=== PATIENT | female | born 1970 | race African-American/Black ===

== ENCOUNTER → 2016-09-25 | Outpatient (CLI) | payer MEDICAID ==
[2016-09-25 11:45] LABS: ALANINE AMINOTRANSFERASE 36 U/L (9-52); ALBUMIN 3.5 g/dL (3.5-5.0); ALKALINE PHOSPHATASE 75 U/L (38-126); ANION GAP 12 (5-19); ASPARTATE AMINO TRANSFERASE 22 U/L (14-36); BILIRUBIN,TOTAL 0.6 mg/dL (0.2-1.3); BLOOD UREA NITROGEN 33 mg/dL (7-20); CALCIUM 9.2 mg/dL (8.4-10.2); CARBON DIOXIDE 24 mmol/L (22-30); CHLORIDE 109 mmol/L (98-107); CREATININE RESULT 2.72 mg/dL (0.52-1.25); GLUCOSE 96 mg/dL (75-110); POTASSIUM 3.7 mmol/L (3.6-5.0); SODIUM 144.9 mmol/L (137-145); TOTAL PROTEIN 6.1 g/dL (6.3-8.2)
== END ==
LOC: OD 10:04
PROVIDERS: ATTEND Internal Medicine Geriatric Medicine
DX: I10 Essential (primary) hypertension (principal)
CPT/HCPCS: 36415; 80053

== ENCOUNTER 2017-01-06 20:16 | Emergency (ER) | payer SELFPAY ==
[2017-01-06] MEDS ORDERED: FUROSEMIDE INJ/PF 100 MG/10 ML SDV IV ONE (21:36)
[2017-01-06] MEDS ORDERED: ISOSORBIDE DINITRATE 20 MG TABLET PO ONE (21:37)
[2017-01-06] MEDS ORDERED: HYDRALAZINE HCL 50 MG TABLET PO ONE (21:37)
[2017-01-06] MEDS ORDERED: CARVEDILOL 12.5 MG TABLET PO ONE (21:37)
[2017-01-06] MEDS ORDERED: AMLODIPINE BESYLATE 10 MG TABLET PO ONE (21:37)
--- NOTE | 2017-01-06 22:00 | ER Document Report ---
ED Blood Pressure Problem - General Chief Complaint: High Blood Pressure Stated Complaint: ARMS/LEGS SWELLING,DIFFICULTY BREATHING Notes: The patient is a 46-year-old female, past medical history hypertension, chronic peripheral edema, hyperlipidemia, Stage 4 CKD, presents with 4 months of intermittent ankle swelling. She has a dull frontal headache and takes Motrin which helps. In addition, she has been out of her blood pressure medications for the past 3 months because of loss of insurance. She has an appointment at the [facility] in 5 weeks. The patient is not taking her furosemide 20 mg, atorvastatin 20 mg, cetirizine 5 mg, isosorbide dinitrate 20 mg, hydralazine 100 mg, Terazosin 5 mg, coreg 25 mg, sertraline 100 mg, amlodipine 10 mg, Combivent. She denies chest pain, nausea, vomiting, calf pain, numbness, tingling, fevers, back pain, headache or abdominal pain. TRAVEL OUTSIDE OF THE [place] IN LAST 30 DAYS: No - Related Data Allergies/Adverse Reactions: No Known Allergies Allergy (Verified 09/29/15 08:27) Past Medical History - General Information source: Patient - Social History Smoking Status: Unknown if Ever Smoked Family History: CAD, DM, Hypertension Patient has suicidal ideation: No Patient has homicidal ideation: No - Past Medical History Cardiac Medical History: Reports: Hx Hypercholesterolemia, Hx Hypertension Pulmonary Medical History: Reports: Hx Tuberculosis Renal/ Medical History: Denies: Hx Peritoneal Dialysis Psychiatric Medical History: Reports: Hx Depression - Immunizations Immunizations up to date: Yes Hx Diphtheria, Pertussis, Tetanus Vaccination: Yes Hx Pneumococcal Vaccination: 11/26/13 Review of Systems - Review of Systems Notes: REVIEW OF SYSTEMS: CONSTITUTIONAL: -fevers, -chills EENT: -eye pain, -difficulty swallowing, -nasal congestion CARDIOVASCULAR:-chest pain, -syncope. RESPIRATORY: -cough, -SOB GASTROINTESTINAL: -abdominal pain, - nausea, -vomiting, -diarrhea GENITOURINARY: -dysuria, -hematuria MUSCULOSKELETAL: +ankle edema, -back pain, -neck pain SKIN: -rash or skin lesions. HEMATOLOGIC: -easy bruising or bleeding. LYMPHATIC: -swollen, enlarged glands. NEUROLOGICAL: -altered mental status or loss of consciousness, -headache, - neurologic symptoms PSYCHIATRIC: -anxiety, -depression. ALL OTHER SYSTEMS REVIEWED AND NEGATIVE. Physical Exam - Vital signs Vitals: Temp Pulse Resp BP Pulse Ox 98.3 F 103 H 22 H 300/160 H 94 01/06/17 20:52 01/06/17 20:52 01/06/17 20:52 01/06/17 20:52 01/06/17 20:52 - Notes Notes: PHYSICAL EXAMINATION: GENERAL: Well-appearing, well-nourished and in no acute distress. HEAD: Atraumatic, normocephalic. EYES: Pupils equal round and reactive to light, extraocular movements intact, sclera anicteric, conjunctiva are normal. ENT: nares patent, oropharynx clear without exudates. Moist mucous membranes. NECK: Normal range of motion, supple without lymphadenopathy LUNGS: Breath sounds clear to auscultation bilaterally and equal. No wheezes rales or rhonchi. HEART: Regular rate and rhythm without murmurs ABDOMEN: Soft, nontender, normoactive bowel sounds. No guarding, no rebound. No masses appreciated. EXTREMITIES: 2+ pitting edema to ankles, normal range of motion. No calf tenderness. No cyanosis. NEUROLOGICAL: Cranial nerves grossly intact. Normal speech, normal gait. Normal sensory, motor, and reflex exams. PSYCH: Normal mood, normal affect. SKIN: Warm, Dry, normal turgor, no rashes or lesions noted. Course - Re-evaluation Re-evalutation: Patient with asymptomatic hypertension due to medication noncompliance for the past 3 months. Her only complaint is a dull frontal headache and dependent edema to her ankles, which resolves when she elevates her legs. Based on ACEP guidelines, recommends restarting home blood pressure meds and following up with primary care physician without checking labs. After taking her home blood pressure medications, her blood pressure decreased to 181/92 and she is still asymptomatic. Provided patient with her home doses of her antihypertensive medications and will write for a prescription until she is able [facility]. - Vital Signs Vital signs: Temp Pulse Resp BP Pulse Ox 98.3 F 103 H 22 H 300/160 H 94 01/06/17 20:52 01/06/17 20:52 01/06/17 20:52 01/06/17 20:52 01/06/17 20:52 Discharge - Discharge Clinical Impression: Dependent edema Hypertension Qualifiers: Hypertension type: unspecified secondary hypertension Qualified Code(s): I15.9 - Secondary hypertension, unspecified; I15 - Secondary hypertension Condition: Stable Disposition: HOME, SELF-CARE Additional Instructions: HIGH BLOOD PRESSURE REQUIRING TREATMENT: Your blood pressure is high. This is called "hypertension." Your history and exam suggest that this is not a temporary problem. You need treatment of your blood pressure. If left untreated, high blood pressure greatly increases your risk of heart attack and stroke. Please don't ignore this problem. If you have blood pressure medicine but aren't using it regularly, start taking it again. Some simple things you can do to help are: Get some aerobic exercise for at least 20 minutes on a daily basis. (See your doctor before beginning any new exercise program.) Eat a low-fat diet. Lose excess weight. Avoid salty foods and avoid adding salt to any of the foods you eat. Avoid diet pills, decongestants, "energizing" herbs, and other medicines that elevate blood pressure. There are many different medicines that treat blood pressure. If your medication causes unpleasant side effects, call your doctor. There are others you can try. Treating hypertension is a life-long investment in your health. CALCIUM CHANNEL BLOCKERS: A medication of the calcium channel dawson type has been prescribed for you. Examples of this type of medicine are Calan, Isoptin, Procardia, and Cardizem. These medicines have a variety of uses, including prevention of angina attacks, treatment of blood pressure, regulation of certain heart rhythm problems, and prevention of migraine headaches. Calcium channel blockers work by interfering with the flow of calcium in cell membranes. This results in dilation of blood vessels, and slowing of electrical conduction in the heart. A slight dizziness (due to a fall in blood pressure) may occur with the first dose, and sometimes even with later doses. This may make you prone to dizziness if you stand up suddenly. Call the doctor if lightheadedness is severe, or if you develop palpitations, shortness of breath, or any other new or alarming symptoms. BETA BLOCKERS: You have been given a prescription for a beta-dawson medication. This class of drugs is used for many purposes, including angina, high blood pressure , heart rhythm disturbances, tremors, and migraines. The medication works by interfering with the effects of the sympathetic nervous system (the sympathetic system has adrenaline-like effects of constricting blood vessels, increasing heart rate, and increasing blood pressure). This medication is usually well-tolerated. However, some patients have side effects such as fatigue, depression, or dizziness. Persons with asthma may develop wheezing from this medicine. Contact your doctor if you are bothered by any side effects. Do not take any cold or allergy medication without first consulting your doctor. Do not stop the medicine without consulting your doctor, as a "rebound " worsening of your condition can result. FOLLOW-UP CARE: If you have been referred to a physician for follow-up care, call the physician s office for an appointment as you were instructed or within the next two days. If you experience worsening or a significant change in your symptoms, notify the physician immediately or return to the Emergency Department at any time for re-evaluation. Prescriptions: Amlodipine Besylate 10 mg PO DAILY #40 tab Atorvastatin Calcium 20 mg PO DAILY #40 tablet Carvedilol [Coreg 25 mg Tablet] 1 tab PO Q12 #80 tab Furosemide [Lasix] 20 mg PO QAM #40 tablet Hydralazine HCl 100 mg PO DAILY 40 Days Isosorbide Dinitrate [Isordil Titradose 20 mg Tablet] 20 mg PO DAILY #40 tablet Sertraline HCl 100 mg PO DAILY 40 Days Terazosin HCl 5 mg PO DAILY 40 Days Forms: Elevated Blood Pressure Referrals: JONATAN GAGE DO [NO LOCAL MD] - Follow up as needed
[2017-01-06] MEDS ORDERED: ISOSORBIDE DINITRATE 20 MG TABLET ONE (22:11)
[2017-01-06 23:03] VITALS: BP 184/94
== END 2017-01-06 23:03 | disposition home or self-care (01) ==
LOC: ER 20:16
DX: R60.9 Edema, unspecified (principal); R51 Headache; E78.00 Pure hypercholesterolemia, unspecified; I12.9 Hypertensive chronic kidney disease with stage 1 through stage 4 chronic kidney disease, or unspecified chronic kidney disease; Z91.14 Patient's other noncompliance with medication regimen; N18.4 Chronic kidney disease, stage 4 (severe); E78.5 Hyperlipidemia, unspecified; Z86.11 Personal history of tuberculosis; Z59.8 Other problems related to housing and economic circumstances
CPT/HCPCS: 99284; 96374; J1940

== ENCOUNTER 2017-02-13 15:14 | Emergency (ER) | payer SELFPAY ==
--- NOTE | 2017-02-13 16:19 | ER Document Report ---
HPI - HPI Patient complains to provider of: Elevated blood pressure Onset: Just prior to arrival Onset/Duration: Gradual Quality of pain: No pain Pain Level: Denies Context: Patient states she was going to her doctor's office for recheck and was told that her blood pressure was elevated. Patient did not see the provider as there was no provider in the office today. Nursing staff told patient that she should come to the emergency department for evaluation. Patient denies any problems or complaints. Patient denies any chest pain, headache, abdominal pain , back pain, or shortness of breath. Patient denies any urinary symptoms or visual changes. Does state that she takes atenolol and is supposed to take lisinopril/HCTZ, but states she saw that -Americans can have swelling with taking lisinopril so she has not been taking this medication. Associated Symptoms: None. denies: Chest pain, Nonproductive cough, Productive cough, Headache, Shortness of breath Exacerbated by: Denies Relieved by: Denies Similar symptoms previously: Yes Recently seen / treated by doctor: No - ROS ROS below otherwise negative: Yes Systems Reviewed and Negative: Yes All other systems reviewed and negative - CONSTITUTIONAL Constitutional: DENIES: Fever - NEURO Neurology: DENIES: Headache, Weakness - CARDIOVASCULAR Cardiovascular: DENIES: Chest pain - RESPIRATORY Respiratory: DENIES: Trouble Breathing, Coughing - GASTROINTESTINAL Gastrointestinal: DENIES: Abdominal Pain, Diarrhea - REPRODUCTIVE Reproductive: DENIES: : - MUSCULOSKELETAL Musculoskeletal: DENIES: Extremity pain, Back Pain, Neck Pain - DERM Skin Color: Normal Skin Problems: None Past Medical History - General Information source: Patient - Social History Smoking Status: Never Smoker Chew tobacco use (# tins/day): No Frequency of alcohol use: None Drug Abuse: None Family History: CAD, DM, Hypertension Patient has suicidal ideation: No Patient has homicidal ideation: No - Past Medical History Cardiac Medical History: Reports: Hx Hypercholesterolemia, Hx Hypertension Pulmonary Medical History: Reports: Hx Tuberculosis Renal/ Medical History: Reports: Hx Renal Insufficiency. Denies: Hx Peritoneal Dialysis Psychiatric Medical History: Reports: Hx Depression Surgical Hx: Negative - Immunizations Immunizations up to date: Yes Hx Diphtheria, Pertussis, Tetanus Vaccination: Yes Hx Pneumococcal Vaccination: 11/26/13 Vertical Provider Document - CONSTITUTIONAL Agree With Documented VS: Yes Exam Limitations: No Limitations General Appearance: WD/WN, No Apparent Distress - INFECTION CONTROL TRAVEL OUTSIDE OF THE [place] IN LAST 30 DAYS: No - HEENT HEENT: Atraumatic, Normal ENT Exam, Normocephalic - NECK Neck: Normal Inspection, Supple - RESPIRATORY Respiratory: Breath Sounds Normal, No Respiratory Distress O2 Sat by Pulse Oximetry: 91 - CARDIOVASCULAR Cardiovascular: Regular Rate, Regular Rhythm, No Murmur - GI/ABDOMEN Gastrointestinal: Abdomen Soft, Abdomen Non-Tender - BACK Back: Normal Inspection. negative: CVA Tenderness-Right, CVA Tenderness-Left - MUSCULOSKELETAL/EXTREMETIES Musculoskeletal/Extremeties: HAM SALAS - NEURO Level of Consciousness: Awake, Alert, Appropriate Motor/Sensory: No Motor Deficit, No Sensory Deficit - DERM Integumentary: Warm, Dry, No Rash Course - Re-evaluation Re-evalutation: 02/13/17 16:[address] Guerra regarding patient presentation. Agrees with discharge plan of care. Patient presents with asymptomatic hypertension and acknowledges that she has not been taking her blood pressure medications as prescribed she was concerned about possible side effects. Patient educated at length regarding medications. Verbalized understanding and agrees with plan of care 02/13/17 16:18 The patient has been informed that they may have pre-hypertension or hypertension based on a blood pressure reading in the emergency department. I recommend that patient call the primary care provider listed on their discharge instructions or a physician of their choice by this week to arrange follow-up for further evaluation of possible pre-hypertension her hypertension. - Vital Signs Vital signs: Temp Pulse Resp BP Pulse Ox 97.8 F 62 18 187/107 H 91 L 02/13/17 15:25 02/13/17 15:25 02/13/17 15:25 02/13/17 15:25 02/13/17 15:25 Discharge - Discharge Clinical Impression: Hypertension Qualifiers: Hypertension type: essential hypertension Qualified Code(s): I10 - Essential ( primary) hypertension Condition: Stable Disposition: HOME, SELF-CARE Instructions: High Blood Pressure ([facility]), Angiotensin Converting Enzyme Inhibitor Medication ([facility]), Hydrochlorothiazide ([facility]) Additional Instructions: Return immediately for any new or worsening symptoms Followup with your primary care provider, call tomorrow to make a followup appointment Follow-up with your primary doctor for recheck Take your prescribed blood pressure medication as directed. Forms: Elevated Blood Pressure Referrals: [facility] [Provider Group] - Follow up tomorrow
[2017-02-13 16:51] VITALS: BP 223/128
== END 2017-02-13 16:53 | disposition home or self-care (01) ==
LOC: ER 15:14
DX: I10 Essential (primary) hypertension (principal); T46.4X6A Underdosing of angiotensin-converting-enzyme inhibitors, initial encounter; Z91.128 Patient's intentional underdosing of medication regimen for other reason; Z91.14 Patient's other noncompliance with medication regimen; Z79.899 Other long term (current) drug therapy
CPT/HCPCS: 99283

== ENCOUNTER → 2017-02-15 | Outpatient (CLI) | payer OTHER ==
[2017-02-15 11:26] LABS: ABSOLUTE BASOPHILS # (AUTO) 0.1 10^3/uL (0.0-0.2); ABSOLUTE EOSINOPHILS # (AUTO) 0.3 10^3/uL (0.0-0.6); ABSOLUTE LYMPHOCYTES (AUTO) 1.4 10^3/uL (0.5-4.7); ABSOLUTE MONOCYTES (AUTO) 0.4 10^3/uL (0.1-1.4); ABSOLUTE NEUT (AUTO) 3.3 10^3/uL (1.7-8.2); EOSINOPHILS % (AUTO) 5.5 % (0-6); HEMATOCRIT 37.1 % (36.0-47.0); HEMOGLOBIN 11.9 g/dL (12.0-15.5); HGB HCT DIFFERENCE -1.4; LYMPHOCYTES % (AUTO) 25.1 % (13-45); MEAN CORPUSCULAR HEMOGLOBIN 28.8 pg (27.0-33.4); MEAN CORPUSCULAR HGB CONC 32.1 g/dL (32.0-36.0); MEAN CORPUSCULAR VOLUME 90 fl (80-97); RED BLOOD COUNT 4.13 10^6/uL (3.72-5.28); RED CELL DISTRIBUTION WIDTH 15.8 % (11.5-14.0); SEGMENTED NEUTROPHILS % (AUTO) 60.4 % (42-78); WHITE BLOOD COUNT 5.4 10^3/uL (4.0-10.5)
[2017-02-15 11:50] LABS: CHOLESTEROL 170.01 mg/dL (0-200); Direct HDL 47 mg/dL (>40); TRIGLYCERIDES 124 mg/dL (<150)
[2017-02-15 12:01] LABS: DIRECT LDL 72 mg/dL (<100)
== END ==
LOC: CCC 10:18
DX: I10 Essential (primary) hypertension (principal)
CPT/HCPCS: 36415; 80061; 82043; 83036; 84443; 85025

== ENCOUNTER 2017-02-23 21:00 | Emergency (ER) | payer SELFPAY ==
[2017-02-23] MEDS ORDERED: HYDRALAZINE HCL INJ/PF 20 MG/1 ML SDV IV ONE ×2 (22:42→23:22)
--- NOTE | 2017-02-23 22:49 | ER Document Report ---
ED General - General Chief Complaint: Headache Stated Complaint: BLOOD PRESSURE ISSUES Time Seen by Provider: 02/23/17 22:20 Mode of Arrival: Ambulatory Information source: Patient Notes: This is a 47-year-old female with a history of poorly controlled hypertension, chronic kidney disease stage IV and prior CVA who presents with severe headache and elevated blood pressure. She states that she has had a mild cough for most the day and that from coughing she has developed a gradual but worsening headache all day. Finally tonight her headache became so severe that she asked her family to bring her to the ER. She does report compliance with her antihypertensive medications. She denies any fevers or chills. She denies any vision changes or numbness or tingling. She has had some nausea and vomiting today. Of note she has a history of hypertensive urgency and has required prior prior ICU admissions for the same. Last ICU admission she did respond to a Cardene drip. TRAVEL OUTSIDE OF THE [place] IN LAST 30 DAYS: No - Related Data Allergies/Adverse Reactions: No Known Allergies Allergy (Verified 02/23/17 21:46) Past Medical History - General Information source: Patient, [facility] Records - Social History Smoking Status: Former Smoker Frequency of alcohol use: None Drug Abuse: None Family History: CAD, DM, Hypertension - Past Medical History Cardiac Medical History: Reports: Hx Hypercholesterolemia, Hx Hypertension Pulmonary Medical History: Reports: Hx Tuberculosis Neurological Medical History: Reports: Hx Cerebrovascular Accident Renal/ Medical History: Reports: Hx End Stage Renal Disease, Hx Renal Insufficiency. Denies: Hx Peritoneal Dialysis Psychiatric Medical History: Reports: Hx Depression - Immunizations Immunizations up to date: Yes Hx Diphtheria, Pertussis, Tetanus Vaccination: Yes Hx Pneumococcal Vaccination: 11/26/13 Review of Systems - Review of Systems Constitutional: No symptoms reported. denies: Chills, Fever, Recent illness EENT: No symptoms reported Cardiovascular: No symptoms reported. denies: Chest pain, Palpitations Respiratory: Cough, Short of breath Gastrointestinal: No symptoms reported Genitourinary: No symptoms reported Musculoskeletal: No symptoms reported Skin: No symptoms reported Hematologic/Lymphatic: No symptoms reported Neurological/Psychological: See HPI, Headaches. denies: Seizure, Lost consciousness Physical Exam - Vital signs Vitals: Temp Pulse Resp BP Pulse Ox 98.5 F 93 30 H 260/174 H 86 L 02/23/17 21:53 02/23/17 21:53 02/23/17 21:53 02/23/17 21:53 02/23/17 21:53 - Notes Notes: PHYSICAL EXAMINATION: GENERAL: Well-appearing, well-nourished and in no acute distress. Pleasant, conversant, smiling HEAD: Atraumatic, normocephalic. EYES: Pupils equal round and reactive to light, extraocular movements intact, sclera anicteric, conjunctiva are normal. ENT: nares patent, oropharynx clear without exudates. Moist mucous membranes. NECK: Normal range of motion, supple without lymphadenopathy LUNGS: Breath sounds clear to auscultation bilaterally and equal. No wheezes rales or rhonchi. HEART: Regular rate and rhythm without murmurs ABDOMEN: Soft, nontender, normoactive bowel sounds. No guarding, no rebound. No masses appreciated. EXTREMITIES: Normal range of motion NEUROLOGICAL: Cranial nerves grossly intact. Normal speech. Motor strength +5/ 5 bilateral upper and lower extremities, sensation grossly intact throughout PSYCH: Normal mood, normal affect. SKIN: Warm, Dry, normal turgor, no rashes or lesions noted. Course - Re-evaluation Re-evalutation: 02/24/17 01:[address] is negative for acute process. She has remained neurologically intact. Her blood pressure is responding to hydralazine and she is now on a Cardene drip at 7.5. Most recent blood pressure 178/106. Will discuss with hospitalist for admission. 02/24/17 04:45 There are no ICU beds available at [facility], and hospitalist recommends transfer as patient requires a nicardipine drip at this time. I discussed the case with Dr. Lozano at [facility] who accepts the patient in transfer. Patient and family comfortable with this plan and questions were answered. 02/24/17 04:48 - Vital Signs Vital signs: Temp Pulse Resp BP Pulse Ox 98.2 F 93 22 H 190/102 H 95 02/24/17 03:19 02/23/17 21:53 02/24/17 02:30 02/24/17 02:30 02/24/17 02:30 - Laboratory Result Diagrams: 02/23/17 23:52 02/23/17 23:52 Laboratory results interpreted by me: 02/23/17 02/23/1717 22:40 23:49 23:52 Hgb 11.6 L Hct 35.8 L RDW 15.3 H APTT 22.4 L Potassium BUN Creatinine Est GFR ( Amer) Est GFR (Non-Af Amer) Glucose Total Bilirubin Urine Protein >=500 H 02/23/17 23:52 Hgb Hct RDW APTT Potassium 3.0 L* BUN 34 H Creatinine 4.52 H Est GFR ( Amer) 13 L Est GFR (Non-Af Amer) 10 L Glucose 133 H Total Bilirubin 1.4 H Urine Protein - EKG Interpretation by Me Additional EKG results interpreted by me: 02/23/17 22:49 EKG at 2243 demonstrates normal sinus rhythm with a rate of 81. There is an incomplete right bundle branch block and LVH. There is no significant change from prior EKG. Critical Care Note - Critical Care Note Total time excluding time spent on procedures (mins): 60 - minutes of critical care time spent in direct contact evaluating and reevaluating the patient, treating symptoms, reviewing labs and studies and speaking with family and consultants excluding any procedures Discharge - Discharge Clinical Impression: Hypertensive urgency, malignant, Hypokalemia Acute on chronic renal failure Qualifiers: Acute renal failure type: unspecified Chronic kidney disease stage: stage 4 ( severe) Qualified Code(s): N17.9 - Acute kidney failure, unspecified Condition: Serious Disposition: [facility]
[2017-02-23 23:12] LABS: PROTHROMBIN TIME 13.8 SEC (11.4-15.4)
[2017-02-23 23:13] LABS: PARTIAL THROMBOPLASTIN TIME 22.4 SEC (23.5-35.8)
[2017-02-23] MEDS: NICARDIPINE HCL RTU, ISO-OS 200 ML IV PRN ×2 (23:16→23:45)
--- NOTE | 2017-02-23 23:35 | RADIOLOGY REPORT (SQ) ---
EXAM DESCRIPTION: CHEST SINGLE VIEW COMPLETED DATE/TIME: 02/23/2017 11:07 pm REASON FOR STUDY: hypertensive urgency, BARAJAS COMPARISON: 04/20/2016 NUMBER OF VIEWS: One view. TECHNIQUE: Single frontal radiographic view of the chest acquired. LIMITATIONS: None. FINDINGS: LUNGS AND PLEURA: No pneumothorax. No consolidation or pleural effusion. MEDIASTINUM AND HILAR STRUCTURES: Stable. HEART AND VASCULATURE: Cardiac enlargement. Vascular congestion. BONES: No acute findings. HARDWARE: None in the chest. OTHER: No other significant finding. IMPRESSION: CARDIAC ENLARGEMENT. VASCULAR CONGESTION. TECHNICAL DOCUMENTATION: JOB ID: [id number] [employer]- All Rights Reserved
--- NOTE | 2017-02-23 23:38 | RADIOLOGY REPORT (SQ) ---
EXAM DESCRIPTION: CT HEAD WITHOUT COMPLETED DATE/TIME: 02/23/2017 11:12 pm REASON FOR STUDY: hypertensive urgency, BARAJAS COMPARISON: 08/17/2015 TECHNIQUE: Axial images acquired through the brain without intravenous contrast. Images reviewed wi th bone, brain and subdural windows. Images stored on PACS. All CT scanners at this facility use dose modulation, iterative reconstruction, and/or weight based d osing when appropriate to reduce radiation dose to as low as reasonably achievable (ALARA). [facility]: Dose Right [facility]: CareDose [facility]: Dose Right [facility]: Teradose 4D [facility]: Quibly RADIATION DOSE: 64.61 mGy. LIMITATIONS: None. FINDINGS: VENTRICLES: Age-appropriate. CEREBRUM: No masses. No hemorrhage. No midline shift. Areas of low density in the white matter mos t likely due to chronic micro-vascular ischemic change. No evidence for acute infarction. CEREBELLUM: No masses. No hemorrhage. No alteration of density. No evidence for acute infarction. EXTRAAXIAL SPACES: Mild age-related involutional change. No fluid collections. No masses. ORBITS AND GLOBE: No intra- or extraconal masses. Normal contour of globe without masses. CALVARIUM: No fracture. PARANASAL SINUSES: Left maxillary mucosal thickening. SOFT TISSUES: No mass or hematoma. OTHER: No other significant finding. IMPRESSION: No acute intracranial findings. Stable Areas of low density in the white matter most li galo due to chronic micro-vascular ischemic change. TECHNICAL DOCUMENTATION: JOB ID: [id number] Quality ID # [id number]: Final reports with documentation of one or more dose reduction techniques (e.g., Au tomated exposure control, adjustment of the mA and/or kV according to patient size, use of iterative reconstruction technique) 2010 [employer]- All Rights Reserved
--- NOTE | 2017-02-23 23:42 | EKG REPORT ---
SEVERITY:- ABNORMAL ECG - SINUS RHYTHM PROBABLE LEFT ATRIAL ABNORMALITY LVH WITH IVCD, LAD AND SECONDARY REPOL ABNRM : Confirmed by: Eli Abdi 23-Feb-2017 23:41:06
[2017-02-24 00:02] LABS: APPEARANCE,URINE CLEAR; BILIRUBIN,URINE NEGATIVE (NEGATIVE); GLUCOSE, URINE NEGATIVE (NEGATIVE); KETONES,URINE NEGATIVE (NEGATIVE); LEUKOCYTE ESTERASE,URINE NEGATIVE (NEGATIVE); NITRITE,URINE NEGATIVE (NEGATIVE); PROTEIN,URINE >=500 mg/dL (NEGATIVE); URINE SPECIFIC GRAVITY 1.007; UROBILINOGEN,URINE NEGATIVE mg/dL (<2.0)
[2017-02-24 00:03] LABS: ABSOLUTE BASOPHILS # (AUTO) 0.1 10^3/uL (0.0-0.2); ABSOLUTE EOSINOPHILS # (AUTO) 0.2 10^3/uL (0.0-0.6); ABSOLUTE LYMPHOCYTES (AUTO) 1.9 10^3/uL (0.5-4.7); ABSOLUTE MONOCYTES (AUTO) 0.7 10^3/uL (0.1-1.4); ABSOLUTE NEUT (AUTO) 6.1 10^3/uL (1.7-8.2); BASOPHILS % (AUTO) 0.9 % (0-2); HEMATOCRIT 35.8 % (36.0-47.0); HEMOGLOBIN 11.6 g/dL (12.0-15.5); MEAN CORPUSCULAR HEMOGLOBIN 29.3 pg (27.0-33.4); MEAN CORPUSCULAR HGB CONC 32.4 g/dL (32.0-36.0); MEAN CORPUSCULAR VOLUME 91 fl (80-97); MONOCYTES % (AUTO) 7.8 % (3-13); RED BLOOD COUNT 3.96 10^6/uL (3.72-5.28); RED CELL DISTRIBUTION WIDTH 15.3 % (11.5-14.0); SEGMENTED NEUTROPHILS % (AUTO) 68.3 % (42-78); WHITE BLOOD COUNT 8.9 10^3/uL (4.0-10.5)
[2017-02-24] MEDS ORDERED: HYDROMORPHONE HCL INJ/PF 2 MG/ML AMPULE IV ONE (00:03)
[2017-02-24] MEDS ORDERED: ONDANSETRON HCL INJ/PF 4 MG/2 ML SDV IV ONE (00:03)
[2017-02-24 00:16] LABS: URINE BARBITURATES SCREEN NEGATIVE; URINE METHADONE SCREEN NEGATIVE; URINE OPIATES LOW NEGATIVE; URINE PHENCYCLIDINE SCREEN NEGATIVE
[2017-02-24 00:16] LABS: ALANINE AMINOTRANSFERASE 33 U/L (9-52); ALBUMIN 3.8 g/dL (3.5-5.0); ALKALINE PHOSPHATASE 71 U/L (38-126); ANION GAP 16 (5-19); ASPARTATE AMINO TRANSFERASE 23 U/L (14-36); BILIRUBIN,DIRECT 0.4 mg/dL (0.0-0.4); BILIRUBIN,TOTAL 1.4 mg/dL (0.2-1.3); BLOOD UREA NITROGEN 34 mg/dL (7-20); CALCIUM 9.6 mg/dL (8.4-10.2); CARBON DIOXIDE 29 mmol/L (22-30); CHLORIDE 100 mmol/L (98-107); CREATINE KINASE 94 U/L (30-135); CREATININE RESULT 4.52 mg/dL (0.52-1.25); GLUCOSE 133 mg/dL (75-110); SODIUM 144.5 mmol/L (137-145); TOTAL PROTEIN 6.9 g/dL (6.3-8.2)
[2017-02-24 00:30] LABS: CREATINE KINASE MB 0.5 ng/mL (<4.55)
[2017-02-24 00:32] LABS: TROPONIN I 0.106 ng/mL
[2017-02-24] MEDS ORDERED: POTASSIUM CHLORIDE 20 MEQ/15 ML UDCUP PO ONE (01:46)
[2017-02-24 08:01] VITALS: BP 163/85
== END 2017-02-24 08:10 | disposition short-term general hospital (02) ==
LOC: ER 21:00
DX: I16.0 Hypertensive urgency (principal); I12.9 Hypertensive chronic kidney disease with stage 1 through stage 4 chronic kidney disease, or unspecified chronic kidney disease; N18.4 Chronic kidney disease, stage 4 (severe); N17.9 Acute kidney failure, unspecified; E87.6 Hypokalemia; R51 Headache; I45.10 Unspecified right bundle-branch block; Z87.891 Personal history of nicotine dependence; E78.00 Pure hypercholesterolemia, unspecified; Z86.73 Personal history of transient ischemic attack (TIA), and cerebral infarction without residual deficits
CPT/HCPCS: 93005; 99291; 96375; 96365; 36415; 82553; 82550; 85025; 85610; 85730; 80053; 81001; 84484; 80307; 71010; 70450; 93010; J0360; J1170; J2405; J3490

== ENCOUNTER → 2017-03-28 | Outpatient (CLI) | payer OTHER ==
[2017-03-28 12:32] LABS: ABSOLUTE BASOPHILS # (AUTO) 0.1 10^3/uL (0.0-0.2); ABSOLUTE EOSINOPHILS # (AUTO) 0.2 10^3/uL (0.0-0.6); ABSOLUTE LYMPHOCYTES (AUTO) 1.4 10^3/uL (0.5-4.7); ABSOLUTE MONOCYTES (AUTO) 0.7 10^3/uL (0.1-1.4); BASOPHILS % (AUTO) 1.4 % (0-2); EOSINOPHILS % (AUTO) 3.1 % (0-6); HEMATOCRIT 36.2 % (36.0-47.0); HEMOGLOBIN 11.8 g/dL (12.0-15.5); HGB HCT DIFFERENCE -0.8; LYMPHOCYTES % (AUTO) 21.4 % (13-45); MEAN CORPUSCULAR HEMOGLOBIN 29.5 pg (27.0-33.4); MEAN CORPUSCULAR HGB CONC 32.6 g/dL (32.0-36.0); MEAN CORPUSCULAR VOLUME 91 fl (80-97); MONOCYTES % (AUTO) 10.9 % (3-13); RED CELL DISTRIBUTION WIDTH 15.2 % (11.5-14.0); SEGMENTED NEUTROPHILS % (AUTO) 63.2 % (42-78); WHITE BLOOD COUNT 6.4 10^3/uL (4.0-10.5)
[2017-03-28 13:02] LABS: ANION GAP 15 (5-19); BLOOD UREA NITROGEN 58 mg/dL (7-20); CALCIUM 9.9 mg/dL (8.4-10.2); CARBON DIOXIDE 24 mmol/L (22-30); CHLORIDE 108 mmol/L (98-107); CREATININE RESULT 4.83 mg/dL (0.52-1.25); GLUCOSE 95 mg/dL (75-110); POTASSIUM 5.1 mmol/L (3.6-5.0); SODIUM 146.7 mmol/L (137-145)
[2017-03-29 08:39] LABS: HEPATITIS C VIRUS AB <0.1 s/co ratio (0.0-0.9)
== END ==
LOC: CCC 11:02
DX: N18.4 Chronic kidney disease, stage 4 (severe) (principal)
CPT/HCPCS: 36415; 80048; 85025; 86317; 86704; 86803; 86804; 87340

== ENCOUNTER 2017-04-08 05:53 | Day surgery (SDC) | payer OTHER ==
--- NOTE | 2017-04-04 10:17 | RADIOLOGY REPORT (SQ) ---
EXAM DESCRIPTION: CHEST PA/LATERAL COMPLETED DATE/TIME: 04/04/2017 9:57 am REASON FOR STUDY: PRE OP COMPARISON: 02/23/2017 EXAM PARAMETERS: NUMBER OF VIEWS: two views TECHNIQUE: Digital Frontal and Lateral radiographic views of the chest acquired. RADIATION DOSE: NA LIMITATIONS: none FINDINGS: LUNGS AND PLEURA: No opacities, masses or pneumothorax. No pleural effusion. MEDIASTINUM AND HILAR STRUCTURES: No masses or contour abnormalities. HEART AND VASCULAR STRUCTURES: Heart is enlarged. No failure. No effusions. BONES: No acute findings. HARDWARE: None in the chest. OTHER: No other significant finding. IMPRESSION: Cardiomegaly. No acute findings. TECHNICAL DOCUMENTATION: JOB ID: [id number] [employer]- All Rights Reserved
[~2017-04-08 05:53] MED LIST: CEFAZOLIN 1 GM/D5W RTU 1 GM/50 ML RTUPB IV PRN; LACTATED RINGERS 1000 ML IV PRN; LIDOCAINE 0.5% INJ-PF (5 MG/ML) 50 ML SDV SUBCUT PRN
[2017-04-08] MEDS ORDERED: LIDOCAINE 0.5% INJ-PF (5 MG/ML) 50 ML SDV ONE (06:49)
[2017-04-08] MEDS ORDERED: BUPIVACAINE HCL 0.25 % INJ/PF (2.5 MG/1 ML) 30 ML VIAL ONE (06:49)
[2017-04-08] MEDS ORDERED: BACITRACIN INJ 50,000 UNIT VIAL ONE (06:50)
[2017-04-08] MEDS ORDERED: FENTANYL CITRATE INJ/PF 100 MCG/2 ML AMPUL ONE (07:17)
[2017-04-08] MEDS ORDERED: MIDAZOLAM 2 MG/2 ML INJ ONE (07:17)
[2017-04-08] MEDS ORDERED: PROPOFOL INJ 200 MG/20 ML VIAL IV ONE (07:18)
[2017-04-08] MEDS ORDERED: MEPERIDINE HCL/PF INJ 25 MG/1 ML DISP.SYRIN IV PRN (08:44)
[2017-04-08] MEDS ORDERED: DIPHENHYDRAMINE HCL 50 MG/ML VIAL IV PRN (08:44)
[2017-04-08] MEDS ORDERED: PROMETHAZINE HCL INJ 25 MG/1 ML VIAL IV PRN ×2 (08:44)
[2017-04-08] MEDS ORDERED: FENTANYL CITRATE INJ/PF 100 MCG/2 ML AMPUL IV PRN ×3 (08:44)
[2017-04-08] MEDS ORDERED: MORPHINE SULFATE 10 MG/ML INJ IV PRN (08:44)
--- NOTE | 2017-04-08 09:32 | PDOC DISCHARGE SUMMARY ---
Discharge Summary (SDC) - Discharge Final Diagnosis: #1 end-stage renal disease. 2. History of stroke. 3. Hypertension. Date of Surgery: 04/08/17 Discharge Date: 04/08/17 Condition: Fair Treatment or Instructions: Discharge home [after recovery per ASU criteria]. Diet , [renal],as tolerated, when fully awake advance as tolerated. Activities within moderation encouraged. Follow up in my office by appointment in about [1 week]. Call for appointment. Leave wounds [covered], [keep clean and dry, until office visit in 1 week]. Medications per medication reconciliation sheet. P.o. Percocet as needed. Hold of on school/work [until evaluation in office]. May shower [in 48 hrs], [try to keep operated area as dry as possible]. Prescriptions: Oxycodone HCl/Acetaminophen [Percocet 5-325 mg Tablet] 1 tab PO ASDIR PRN #10 tab PRN Reason: Discharge Diet: Other (Comments) - Renal Respiratory Treatments at Home: Deep Breathing/Coughing Discharge Activity: Activity As Tolerated Report the Following to Your Physician Immediately: Shortness of Breath, Unusual Bleeding
[2017-04-08] MEDS ORDERED: OXYCODONE-ACETAMINOPHEN 5-325 MG TABLET PO PRN (09:49)
[2017-04-08] MEDS ORDERED: RINGERS SOLUTION,LACTATED 1,000 ML IV PRN (09:49)
--- NOTE | 2017-04-08 09:49 | Operative Report ---
Operative Report DATE OF SURGERY: 04/08/17 PREOPERATIVE DIAGNOSIS: #1 end-stage renal disease. 2. History of stroke. 3. Hypertension. POSTOPERATIVE DIAGNOSIS: #1 end-stage renal disease. Post PermCath insertion. 2. History of stroke. 3. Hypertension. OPERATION: 1. Ultrasound evaluation of the right internal jugular vein. 2. PermCath insertion via real-time access in the right internal jugular vein. 3. interpretation. SURGEON: RAMILA SMALL SUPERVISOR GRINDING: None ANESTHESIA: LMAC TISSUE REMOVED OR ALTERED: Not applicable. COMPLICATIONS: None ESTIMATED BLOOD LOSS: 5 mL. INTRAOPERATIVE FINDINGS: Of a satisfactory right internal jugular vein to support permacatheter. About 1.2 cm in diameter. The carotid artery immediately beneath it was avoided with the help of ultrasound. Good position and function of the catheter was easy egress of blood and ingress of heparinized solution. No contrast study was done in this case, in deference to the patient's positive beta hCG. PROCEDURE: After obtaining informed consent, the patient was taken to the operating room and positioned supine. The right neck and chest were prepared with chlorhexidine and draped out with sterile linen. After the " universal timeout ", in which it was verified that the patient continued to receive antibiotic, the procedure commenced. A steriley sheathed ultrasound probe was used to evaluate the right internal jugular vein. Local anesthesia was infiltrated adjacent to the probe. Access into the right internal jugular vein was obtained using a micropuncture needle, followed by micropuncture wire and then a micropuncture catheter. This was followed by introduction of a 0.035 guidewire the tip of which was placed down into the inferior vena cava . A 23 cm long split catheter was now positioned over the chest and an exit site marked and locally anesthetized ,the catheter was placed between the 2 incisions. Proximally, the catheter was now positioned using a peel-away sheath, after dilation. Easy ingress of heparinized solution and egress of blood obtained through both ports. A completion angiogram was done by injecting contrast. The findings were as dictated. The neck incision was now closed using interrupted 3-0 PDS to the subcutaneous tissues, the catheter was anchored at the exit site using 3-0 PDS. A Biopatch device was now placed adjacent to the catheter. Dressings were applied and the procedure concluded. Exposure time: 0.1 minutes. Copies of the dictated operative report for Dr. Ramila Anton MD.concluded. Copies of the dictated operative report for Dr. Ramila Anton MD.
--- NOTE | 2017-04-08 10:04 | RADIOLOGY REPORT (SQ) ---
EXAM DESCRIPTION: FLUORO/CV PLACEMENT COMPLETED DATE/TIME: 04/08/2017 9:31 am REASON FOR STUDY: PERM CATH GUIDED BY FLUORO IN OR N18.6 END STAGE RENAL DISEASE FLUOROSCOPY TIME: 0.1 minutes TECHNIQUE: Intra-operative images acquired during surgical procedure to evaluate progress. NUMBER OF IMAGES: 1 C-arm image saved to PACS LIMITATIONS: None. FINDINGS: Intra procedural imaging and fluoro during central line placement by Dr. Anton IMPRESSION: Intra procedural imaging and fluoro COMMENT: Quality ID [id number]: Final reports for procedures using fluoroscopy that document radiation exp osure indices, or exposure time and number of fluorographic images (if radiation exposure indices are not available) Please consult full operative report of the attending physician for description of the procedure. TECHNICAL DOCUMENTATION: JOB ID: [id number] [employer]- All Rights Reserved COMPARISON: None. Two-view chest 04/04/2017
[2017-04-08 11:30] VITALS: BP 166/100
== END 2017-04-08 11:10 | disposition home or self-care (01) ==
LOC: OROUT 05:53
PROVIDERS: ATTEND Surgery
PROC: 05HM33Z Insertion of Infusion Device into Right Internal Jugular Vein, Percutaneous Approach (ICD-10-PCS; principal; 2017-04-08 08:00)
DX: I12.0 Hypertensive chronic kidney disease with stage 5 chronic kidney disease or end stage renal disease (principal); N18.6 End stage renal disease; R41.3 Other amnesia; J45.909 Unspecified asthma, uncomplicated; D64.9 Anemia, unspecified; I69.398 Other sequelae of cerebral infarction; H54.42 Blindness, left eye, normal vision right eye; Z87.891 Personal history of nicotine dependence
CPT/HCPCS: 36558; 36415; 84702; 84132; 84703; 71020; 77001; C1752 ×2; J2250; J3490 ×2; J0690; J3010; J2704; J1644; 532

== ENCOUNTER 2017-05-13 18:29 | Emergency (ER) | payer MEDICAID, OTHER ==
--- NOTE | 2017-05-13 20:01 | ER Document Report ---
ED Medical Screen (RME) - General Chief Complaint: Knee Pain Stated Complaint: LEFT HAND PAIN Time Seen by Provider: 05/13/17 19:59 Notes: Patient complains of left hand pain. She states it feels cold and "frostbitten " when she receives dialysis. The access they use for dialysis is in her right chest and is a port. However a new access was just created last week in the left arm. Since this new access was created she has hand pain with dialysis. She had to stop dialysis early today due to the pain. They have not yet used this new access in the left arm, they still use the port in her chest. On exam patient has a decreased left radial pulse suggestive of a possible ischemic/ steal syndrome. TRAVEL OUTSIDE OF THE [place] 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 Denies: Hx Seizures Renal/ Medical History: Reports: Hx End Stage Renal Disease, Hx Renal Insufficiency. Denies: Hx Peritoneal Dialysis Musculoskeltal Medical History: Denies Hx Arthritis Psychiatric Medical History: Reports: Hx Depression - Immunizations Immunizations up to date: Yes Hx Diphtheria, Pertussis, Tetanus Vaccination: Yes Physical Exam - Vital signs Vitals: Temp Pulse BP Pulse Ox 98.4 F 85 154/92 H 96 05/13/17 18:38 05/13/17 18:38 05/13/17 18:38 05/13/17 18:38 Course - Vital Signs Vital signs: Temp Pulse Resp BP Pulse Ox 97.5 F 102 H 16 160/103 H 97 05/13/17 18:50 05/13/17 18:50 05/13/17 18:50 05/13/17 18:50 05/13/17 18:50
[2017-05-13 20:31] LABS: HEMATOCRIT 35.7 % (36.0-47.0); HEMOGLOBIN 12.2 g/dL (12.0-15.5); HGB HCT DIFFERENCE 0.9; RED BLOOD COUNT 3.95 10^6/uL (3.72-5.28); WHITE BLOOD COUNT 10.3 10^3/uL (4.0-10.5)
[2017-05-13 20:32] LABS: ABSOLUTE BASOPHILS # (AUTO) 0.1 10^3/uL (0.0-0.2); ABSOLUTE EOSINOPHILS # (AUTO) 0.1 10^3/uL (0.0-0.6); ABSOLUTE LYMPHOCYTES (AUTO) 1.4 10^3/uL (0.5-4.7); ABSOLUTE MONOCYTES (AUTO) 0.9 10^3/uL (0.1-1.4); ABSOLUTE NEUT (AUTO) 7.8 10^3/uL (1.7-8.2); BASOPHILS % (AUTO) 0.6 % (0-2); EOSINOPHILS % (AUTO) 0.6 % (0-6); MEAN CORPUSCULAR HEMOGLOBIN 30.9 pg (27.0-33.4); MEAN CORPUSCULAR HGB CONC 34.2 g/dL (32.0-36.0); MEAN CORPUSCULAR VOLUME 90 fl (80-97); MONOCYTES % (AUTO) 9.2 % (3-13); SEGMENTED NEUTROPHILS % (AUTO) 75.6 % (42-78)
[2017-05-13 20:49] LABS: BLOOD UREA NITROGEN 15 mg/dL (7-20); CALCIUM 10.3 mg/dL (8.4-10.2); CARBON DIOXIDE 22 mmol/L (22-30); CREATININE RESULT 3.03 mg/dL (0.52-1.25); GLUCOSE 119 mg/dL (75-110); POTASSIUM 3.4 mmol/L (3.6-5.0); SODIUM 136.6 mmol/L (137-145)
[2017-05-13 20:51] LABS: ANION GAP 19 (5-19); CHLORIDE 96 mmol/L (98-107)
--- NOTE | 2017-05-13 21:47 | ER Document Report ---
ED Extremity Problem, Upper - General Chief Complaint: Hand Pain Stated Complaint: LEFT HAND PAIN Time Seen by Provider: 05/13/17 19:59 TRAVEL OUTSIDE OF THE [place] IN LAST 30 DAYS: No - HPI Notes: 47-year-old female with history of chronic renal failure with dialysis Friday, , Friday presents with left hand pain. She had a left-sided fistula placed approximately a week and a half ago and has done well since except she had initially some numbness and tingling of her left hand then now has resolved now she is having pain. She feels like it is frostbitten, with burning. It was much more severe today when she was having dialysis and had to stop dialysis because of this. This is done through a port in her chest though. The [place] has not been used at this point. She is having no fever. She is having no problems with the wound, drainage redness or significant discomfort. No other associated symptoms, focal weakness numbness or tingling otherwise. She does note some slight increased swelling towards the hand making it difficult to watch commander completely but denies specific weakness. - Related Data Allergies/Adverse Reactions: latex Allergy (Verified 05/13/17 18:47) Generalized rash Past Medical History - Social History Smoking Status: Unknown if Ever Smoked Family History: CAD, DM, Hypertension Patient has suicidal ideation: No Patient has homicidal ideation: No - Past Medical History Cardiac Medical History: Reports: Hx Heart Attack - ?QUESTIONABLE, Hx Hypercholesterolemia, Hx Hypertension - ON MEDS Denies: Hx Coronary Artery Disease Pulmonary Medical History: Reports: Hx Asthma, Hx Bronchitis - HX OF IN 2013, Hx Tuberculosis Denies: Hx COPD, Hx Pneumonia Neurological Medical History: Reports: 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 Denies: Hx Seizures Renal/ Medical History: Reports: Hx End Stage Renal Disease, Hx Renal Insufficiency. Denies: Hx Peritoneal Dialysis Musculoskeltal Medical History: Denies Hx Arthritis Psychiatric Medical History: Reports: Hx Depression - Immunizations Immunizations up to date: Yes Hx Diphtheria, Pertussis, Tetanus Vaccination: Yes Hx Pneumococcal Vaccination: 11/26/13 Review of Systems - Review of Systems -: Yes All other systems reviewed and negative Physical Exam - Vital signs Vitals: Temp Pulse BP Pulse Ox 98.4 F 85 154/92 H 96 05/13/17 18:38 05/13/17 18:38 05/13/17 18:38 05/13/17 18:38 Interpretation: Hypertensive - Notes Notes: GENERAL: VS as per nursing doc. Well-appearing, well-nourished and in no acute distress. HEAD: Atraumatic, normocephalic. EYES:Sclera anicteric ENT: Normal to inspection NECK: Normal range of motion LUNGS: Breath sounds clear to auscultation bilaterally and equal. No wheezes rales or rhonchi. HEART: Regular rate and rhythm without murmurs. EXTREMITIES: Left hand is somewhat cool compared to the right hand with very decreased pulse. There is pallor to the nailbeds compared to the right upper extremity. Some decreased range of motion of watch commander. NEUROLOGICAL: Except as noted above, normal motor and sensory exam except slight decreased sensation at most. PSYCH: Normal mood, normal affect. SKIN: Warm, dry, well-healing incision over her left medial upper arm. No signs of infection, redness. Course - Re-evaluation Re-evalutation: 05/14/17 00:25 Arterial study showed good blood flow to the radial and ulnar artery. Patient was reexamined her hand is now warm and nailbeds are pink. She has a palpable radial pulse. Discussed with patient unclear etiology but vasospasm would be a consideration versus some sort of steal syndrome during dialysis. I have encouraged her to contact her surgeon tomorrow and to keep a close eye for any ischemic signs. She voices understanding. I do not see embolic phenomena as a likelihood as it seemed more proximal and there are no splinter hemorrhages or similar otherwise. - Vital Signs Vital signs: Temp Pulse Resp BP Pulse Ox 97.5 F 77 18 132/82 H 97 05/13/17 18:50 05/13/17 23:03 05/13/17 23:03 05/13/17 23:03 05/13/17 18:50 - Laboratory Result Diagrams: 05/13/17 20:15 05/13/17 20:15 Laboratory results interpreted by me: 05/13/17 05/13/17 20:15 20:15 Hct 35.7 L RDW 15.0 H Sodium 136.6 L Potassium 3.4 L Chloride 96 L Creatinine 3.03 H Est GFR ( Amer) 20 L Est GFR (Non-Af Amer) 16 L Glucose 119 H Calcium 10.3 H Discharge - Discharge Clinical Impression: Other abnormal clinical finding Clinical Impression: (Ruled Out): Nontraumatic ischemic infarction of muscle of left hand Condition: Good Disposition: HOME, SELF-CARE Additional Instructions: Please follow-up with your surgeon. Call in the morning. Please return if you are having recurring symptoms or other concern that do not resolve immediately. Referrals: PRITI KIM MD [Primary Care Provider] - Follow up as needed
--- NOTE | 2017-05-14 00:27 | RADIOLOGY REPORT (SQ) ---
EXAM DESCRIPTION: ARTERIAL UPPER EXTREM UNILAT COMPLETED DATE/TIME: 05/14/2017 12:02 am REASON FOR STUDY: Ischemic Left Hand COMPARISON: None. TECHNIQUE: Dynamic and static martinez scale and color images acquired of the bilateral upper extremity arteries. Additional selected spectral images recorded. Images saved to PACS. LIMITATIONS: None. FINDINGS: LEFT UPPER EXTREMITY: SUBCLAVIAN: 2.1 m/sec velocity. Normal Doppler waveforms. No velocity elevation to suggest stenosis . AXILLARY: 2.5 m/sec velocity. Normal Doppler waveforms. No velocity elevation to suggest stenosis . Normal color Doppler evaluation. BRACHIAL: Av fistula from brachium artery to basilic vein appears patent with 4.7 m/sec velocity. V elocity measures 2.7 m/sec. Normal Doppler waveforms. No velocity elevation to suggest stenosis. N ormal color Doppler evaluation. RADIAL: 0.5 meters per sec velocity. Normal Doppler waveforms. No velocity elevation to suggest aniyah nosis. Normal color Doppler evaluation. ULNAR: 0.3 m/sec velocity. Normal Doppler waveforms. No velocity elevation to suggest stenosis. No rmal color Doppler evaluation. OTHER: No other significant finding. IMPRESSION: Brachial artery -basilic vein fistula appears patent. TECHNICAL DOCUMENTATION: JOB ID: [id number] [employer]- All Rights Reserved
[2017-05-14 00:50] VITALS: BP 128/82
== END 2017-05-14 00:47 | disposition home or self-care (01) ==
LOC: ER 18:29
DX: M79.642 Pain in left hand (principal); M79.89 Other specified soft tissue disorders; R23.1 Pallor; I12.0 Hypertensive chronic kidney disease with stage 5 chronic kidney disease or end stage renal disease; N18.6 End stage renal disease; Z99.2 Dependence on renal dialysis; J45.909 Unspecified asthma, uncomplicated; Z91.040 Latex allergy status
CPT/HCPCS: 36415; 80048; 85025; 93931; 99284

== ENCOUNTER 2017-06-09 17:26 | Emergency (ER) | payer MEDICAID ==
[2017-06-09 17:39] VITALS: BP 163/115
[2017-06-09] MEDS ORDERED: OXYCODONE-ACETAMINOPHEN 5-325 MG TABLET PO ONE (18:10)
--- NOTE | 2017-06-09 18:10 | ER Document Report ---
ED General - General Chief Complaint: Arm Pain Stated Complaint: LEFT ARM PAIN Time Seen by Provider: 06/09/17 17:53 Mode of Arrival: Ambulatory Information source: Patient Notes: 47-year-old female presents with a history of dialysis with concerns for left arm pain. Patient had dialysis access placed and has had pain since. Denies any fevers or chills nausea vomiting diarrhea. She has been seen multiple times for similar complaints. Patient is to have the dialysis access moved tomorrow TRAVEL OUTSIDE OF THE [place] IN LAST 30 DAYS: No - HPI Onset: Other Onset/Duration: Persistent Quality of pain: Achy Severity: Moderate Pain Level: 3 Associated symptoms: Other Exacerbated by: Denies Relieved by: Denies Similar symptoms previously: Yes Recently seen / treated by doctor: Yes - Related Data Allergies/Adverse Reactions: latex Allergy (Verified 06/09/17 17:32) Generalized rash Past Medical History - Social History Smoking Status: Never Smoker Cigarette use (# per day): No Chew tobacco use (# tins/day): No Smoking Education Provided: No Family History: CAD, DM, Hypertension Patient has suicidal ideation: No - Past Medical History Cardiac Medical History: Reports: Hx Heart Attack - ?QUESTIONABLE, Hx Hypercholesterolemia, Hx Hypertension - ON MEDS Denies: Hx Coronary Artery Disease Pulmonary Medical History: Reports: Hx Asthma, Hx Bronchitis - HX OF IN 2013, Hx Tuberculosis Denies: Hx COPD, Hx Pneumonia Neurological Medical History: Reports: 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 Denies: Hx Seizures Renal/ Medical History: Reports: Hx End Stage Renal Disease, Hx Renal Insufficiency. Denies: Hx Peritoneal Dialysis Musculoskeltal Medical History: Denies Hx Arthritis Psychiatric Medical History: Reports: Hx Depression - Immunizations Immunizations up to date: Yes Hx Diphtheria, Pertussis, Tetanus Vaccination: Yes Hx Pneumococcal Vaccination: 11/26/13 Review of Systems - Review of Systems Notes: REVIEW OF SYSTEMS: CONSTITUTIONAL : Denies fever, chills, or sweats. Denies recent illness. EENT: Denies eye, ear, throat, or mouth pain or symptoms. Denies nasal or sinus congestion or discharge. Denies throat, tongue, or mouth swelling or difficulty swallowing. CARDIOVASCULAR: Denies chest pain. Denies palpitations or racing or irregular heart beat. Denies ankle edema. RESPIRATORY: Denies cough, cold, or chest congestion. Denies shortness of breath, difficulty breathing, or wheezing. GASTROINTESTINAL: Denies abdominal pain or distention. Denies nausea, vomiting , or diarrhea. Denies blood in vomitus, stools, or per rectum. Denies black, tarry stools. Denies constipation. GENITOURINARY: Denies difficulty urinating, painful urination, burning, frequency, blood in urine, or discharge. FEMALE GENITOURINARY: Denies vaginal bleeding, heavy or abnormal periods, irregular periods. Denies vaginal discharge or odor. MUSCULOSKELETAL: Admits to left arm pain SKIN: Denies rash, lesions or sores. HEMATOLOGIC : Denies easy bruising or bleeding. LYMPHATIC: Denies swollen, enlarged glands. NEUROLOGICAL: Denies confusion or altered mental status. Denies passing out or loss of consciousness. Denies dizziness or lightheadedness. Denies headache. Denies weakness or paralysis or loss of use of either side. Denies problems with gait or speech. Denies sensory loss, numbness, or tingling. Denies seizures. PSYCHIATRIC: Denies anxiety or stress. Denies depression, suicidal ideation, or homicidal ideation. ALL OTHER SYSTEMS REVIEWED AND NEGATIVE. PHYSICAL EXAMINATION: GENERAL: Well-appearing, well-nourished and in no acute distress. HEAD: Atraumatic, normocephalic. EYES: Pupils equal round and reactive to light, extraocular movements intact, conjunctiva are normal. ENT: Nares patent, oropharynx clear without exudates. Moist mucous membranes. NECK: Normal range of motion, supple without lymphadenopathy LUNGS: Breath sounds clear to auscultation bilaterally and equal. No wheezes rales or rhonchi. HEART: Regular rate and rhythm without murmurs ABDOMEN: Soft, nontender, nondistended abdomen. No guarding, no rebound. No masses appreciated. Female : deferred Musculoskeletal: Normal range of motion, no pitting or edema. No cyanosis. NEUROLOGICAL: Cranial nerves grossly intact. Normal speech, normal gait. Normal sensory, motor exams PSYCH: Normal mood, normal affect. SKIN: Bruit noted on dialysis access on left arm, tender to palpation Dictation was performed using [employer] recognition software Physical Exam - Vital signs Vitals: Temp Pulse Resp BP Pulse Ox 98.9 F 89 20 163/115 H 100 06/09/17 17:38 06/09/17 17:38 06/09/17 17:38 06/09/17 17:38 06/09/17 17:38 Course - Re-evaluation Re-evalutation: 06/09/17 19:37 There is no sign of infection no concerns for DVT given that this is supposed to be removed tomorrow I do not believe any further intervention is appropriate except for pain control. Patient was given to tablets of Percocet which did not improve her pain she was then given 2 mg of Dilaudid which did resolve her pain. She is stable for discharge with follow-up tomorrow After performing a Medical Screening Examination, I estimate there is LOW risk for OPEN FRACTURE, COMPARTMENT SYNDROME, TENDON RUPTURE, ACUTE NEUROVASCULAR INJURY, or RETAINED FOREIGN BODY, thus I consider the discharge disposition reasonable. Also, there is no evidence or peritonitis, sepsis, or toxicity. I have reevaluated this patient multiple times and no significant life threatening changes are noted. The patient and I have discussed the diagnosis and risks, and we agree with discharging home with close follow-up with the understanding that symptoms and presentations can change. We also discussed returning to the Emergency Department immediately if new or worsening symptoms occur. We have discussed the symptoms which are most concerning (e.g., changing or worsening pain, fever, numbness, weakness, cool or painful digits) that necessitate immediate return. - Vital Signs Vital signs: Temp Pulse Resp BP Pulse Ox 98.9 F 89 20 163/115 H 100 06/09/17 17:38 06/09/17 17:38 06/09/17 17:38 06/09/17 17:38 06/09/17 17:38 Discharge - Discharge Clinical Impression: ESRD (end stage renal disease) Arm pain, anterior Qualifiers: Laterality: left Qualified Code(s): M79.602 - Pain in left arm Condition: Stable Disposition: HOME, SELF-CARE Additional Instructions: Please follow-up with your physician tomorrow for definitive care of your pain return if there are any other concerns fevers chest pain shortness breath Prescriptions: Oxycodone HCl/Acetaminophen [Percocet 5-325 mg Tablet] 1 - 2 tab PO Q4H PRN #10 tablet PRN Reason: Referrals: CATHI PINTO NP [Primary Care Provider] - Follow up as needed
[2017-06-09] MEDS ORDERED: HYDROMORPHONE HCL INJ/PF 2 MG/ML AMPULE IM ONE (18:41)
== END 2017-06-09 18:56 | disposition home or self-care (01) ==
LOC: ER 17:26
DX: M79.602 Pain in left arm (principal); I12.0 Hypertensive chronic kidney disease with stage 5 chronic kidney disease or end stage renal disease; N18.6 End stage renal disease; Z99.2 Dependence on renal dialysis; J45.909 Unspecified asthma, uncomplicated; Z91.040 Latex allergy status
CPT/HCPCS: 99283; 96372; J1170

== ENCOUNTER 2018-10-19 17:02 | Emergency (ER) | payer MEDICARE, OTHER ==
[2018-10-19] MEDS ORDERED: LIDOCAINE 1%/EPINEPHRINE INJ 20 ML VIAL INJ ONE (17:14)
--- NOTE | 2018-10-19 17:23 | ER Document Report ---
ED Dialysis Cath/Shunt Problem - General Chief Complaint: Dialysis Shunt Problem Stated Complaint: LEFT ARM BLEEDING Time Seen by Provider: 10/19/18 17:13 Primary Care Provider: PRITI KIM MD [Primary Care Provider] - Follow up as needed Mode of Arrival: Ambulatory Information source: Patient Notes: 48-year-old female patient comes emergency room with bleeding from her left upper arm shunt. She reports the bleeding started shortly after she left the dialysis center. She has pressure on a bandage that has soaked through. There does not appear to have been any significant blood loss. TRAVEL OUTSIDE OF THE [place] IN LAST 30 DAYS: No - Related Data Allergies/Adverse Reactions: latex Allergy (Verified 06/09/17 17:32) Generalized rash Past Medical History - General Information source: Patient, [facility] Records - Social History Smoking Status: Never Smoker Cigarette use (# per day): No Chew tobacco use (# tins/day): No Smoking Education Provided: No Frequency of alcohol use: None Drug Abuse: None Occupation: Unemployed Lives with: Family Family History: CAD, DM, Hypertension - Past Medical History Cardiac Medical History: Reports: Hx Heart Attack - ?QUESTIONABLE, Hx Hypercholesterolemia, Hx Hypertension - ON MEDS Pulmonary Medical History: Reports: Hx Asthma, Hx Bronchitis - HX OF IN 2013, Hx Tuberculosis Neurological Medical History: Reports: Hx Cerebrovascular Accident - 2013- CAUSED BLIND IN LEFT EYE Endocrine Medical History: Reports: None Renal/ Medical History: Reports: Hx End Stage Renal Disease, Hx Renal Insufficiency Psychiatric Medical History: Reports: Hx Depression Past Surgical History: Reports: Hx Breast Surgery - Breast cyst removal, Hx Vascular Surgery - Left upper arm AV fistula, Other - Pilonidal cyst excision as a teenager - Immunizations Immunizations up to date: Yes Hx Diphtheria, Pertussis, Tetanus Vaccination: Yes Hx Pneumococcal Vaccination: 11/26/13 Review of Systems - Review of Systems Constitutional: No symptoms reported EENT: No symptoms reported Cardiovascular: No symptoms reported Respiratory: No symptoms reported Gastrointestinal: No symptoms reported Genitourinary: No symptoms reported Female Genitourinary: Post menopausal Musculoskeletal: No symptoms reported Skin: No symptoms reported Hematologic/Lymphatic: No symptoms reported Neurological/Psychological: No symptoms reported Physical Exam - Vital signs Vitals: Temp Pulse Resp BP Pulse Ox 98.9 F 83 16 134/86 H 97 10/19/18 17:15 10/19/18 17:15 10/19/18 17:15 10/19/18 17:15 10/19/18 17:15 Interpretation: Normal - General General appearance: Appears well, Alert In distress: None - HEENT Head: Normocephalic, Atraumatic Eyes: Normal Pupils: PERRL Neck: Normal - Respiratory Respiratory status: No respiratory distress Breath sounds: Normal - Cardiovascular Rhythm: Regular - Abdominal Inspection: Obese - Back Back: Normal - Extremities General upper extremity: Other - Left medial upper arm has an AV fistula. General lower extremity: Normal inspection - Neurological Neuro grossly intact: Yes - Psychological Associated symptoms: Normal affect, Normal mood - Skin Skin Temperature: Warm Skin Moisture: Dry Skin Color: Normal Course - Re-evaluation Re-evalutation: 10/19/18 17:42 PROCEDURE: The left medial upper arm was prepped with Shur-Clens over the area of the fistula that was bleeding. The skin around the bleeding puncture site was anesthetized with 1/2 mL of 1% lidocaine with epi. A goal 5-0 Prolene pursestring suture was placed and pulled tight stopping the bleeding from the puncture site. There was some blood oozing from the skin where the sutures entered. The wound was dressed with bacitracin, sterile 2 x 2's, then 4 x 4's, then co- band for slight pressure over the wound area. - Vital Signs Vital signs: Temp Pulse Resp BP Pulse Ox 98.9 F 83 16 134/86 H 97 10/19/18 17:15 10/19/18 17:15 10/19/18 17:15 10/19/18 17:15 10/19/18 17:15 Discharge - Discharge Clinical Impression: Bleeding from dialysis shunt Qualifiers: Encounter type: initial encounter Qualified Code(s): T82.838A - Hemorrhage due to vascular prosthetic devices, implants and grafts, initial encounter Condition: Stable Disposition: HOME, SELF-CARE Additional Instructions: Leave the bandage intact until tomorrow and remove when you would normally remove the other dressings that were placed over your fistula. Let your left upper arm rest and try to limit any use of the arm. Return to the emergency room if any problems, including bleeding through your bandages. Referrals: PRITI KIM MD [Primary Care Provider] - Follow up as needed
[2018-10-19 17:41] VITALS: BP 134/86
== END 2018-10-19 17:54 | disposition home or self-care (01) ==
LOC: ER 17:02
DX: T82.838A Hemorrhage due to vascular prosthetic devices, implants and grafts, initial encounter (principal); Y84.1 Kidney dialysis as the cause of abnormal reaction of the patient, or of later complication, without mention of misadventure at the time of the procedure; I69.998 Other sequelae following unspecified cerebrovascular disease; H53.8 Other visual disturbances; Z91.040 Latex allergy status; I25.2 Old myocardial infarction
CPT/HCPCS: 99283; 12001; J3490

== ENCOUNTER → 2019-02-18 | Outpatient (CLI) | payer MEDICARE, OTHER ==
--- NOTE | 2019-02-18 13:33 | RADIOLOGY REPORT (SQ) ---
EXAM DESCRIPTION: MRA ABDOMEN WITHOUT COMPLETED DATE/TIME: 02/18/2019 12:57 pm REASON FOR STUDY: ATHEROSCLEROSIS OF RENAL ARTERY I15.9 SECONDARY HYPERTENSION, UNSPECIFIED I70.1 ATHEROSCLEROSIS OF RENAL ARTERY COMPARISON: CT abdomen pelvis 11/22/2013 Bilateral renal ultrasound 10/07/2015 TECHNIQUE: Coronal and Axial imaging with T1 and T2 weighting through the kidneys. 3D [id number] t noncontrast MRA exam of the renal arteries was performed. 3-D MIPs performed at the work station. CONTRAST TYPE AND DOSE: No contrast required RENAL FUNCTION: Not indicated. ACR Type II contrast agent associated with few, if any, unconfounded cases of NSF LIMITATIONS: Motion artifact on the acquisition images FINDINGS: On the source data, there is flow in the abdominal aorta, SMA, and celiac artery which are widely patent. There is minimal flow signal detected in the proximal right renal artery. Minimal flow is identified in the proximal left renal artery. Flow is of such poor signal quality that the stenosis cannot be assessed. IMPRESSION: Nondiagnostic exam for renal artery stenosis TECHNICAL DOCUMENTATION: JOB ID: [id number] [employer]- All Rights Reserved Reading location - IP/workstation name: [email or web address]
== END ==
LOC: RAD 11:36
PROVIDERS: ATTEND Internal Medicine Nephrology
DX: I15.9 Secondary hypertension, unspecified (principal); I70.1 Atherosclerosis of renal artery
CPT/HCPCS: C8901

== ENCOUNTER 2019-06-09 18:54 | Emergency (ER) | payer MEDICARE, OTHER ==
--- NOTE | 2019-06-09 20:59 | ER Document Report ---
ED General - General Chief Complaint: Arm Injury Stated Complaint: HEMORRHAGE TO LEFT FISTULA Time Seen by Provider: 06/09/19 20:41 Primary Care Provider: Susie OLIVARES MD [ACTIVE STAFF] - Follow up as needed TRAVEL OUTSIDE OF THE [place] IN LAST 30 DAYS: No - HPI Notes: Patient has a dialysis graft in her left upper extremity had dialysis today and then awoke and noticed that it was bleeding. EMS bandages up with gauze and Covan has not been bleeding since. [place] any sensory or motor deficits of her left distal upper extremity. 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 Denies: Hx Seizures Renal/ Medical History: Reports: Hx End Stage Renal Disease, Hx Renal Insufficiency. Denies: Hx Peritoneal Dialysis Musculoskeletal Medical History: Denies Hx Arthritis Psychiatric Medical History: Reports: Hx Depression Past Surgical History: Reports: Hx Breast Surgery - Breast cyst removal, Hx Vascular Surgery - Left upper arm AV fistula, Other - Pilonidal cyst excision as a teenager - Immunizations Immunizations up to date: Yes Hx Diphtheria, Pertussis, Tetanus Vaccination: Yes Hx Pneumococcal Vaccination: 11/26/13 Review of Systems - Review of Systems Constitutional: No symptoms reported EENT: No symptoms reported Cardiovascular: No symptoms reported Respiratory: No symptoms reported Gastrointestinal: No symptoms reported Genitourinary: No symptoms reported Female Genitourinary: No symptoms reported Musculoskeletal: See HPI Skin: No symptoms reported Hematologic/Lymphatic: No symptoms reported Neurological/Psychological: No symptoms reported Physical Exam - Vital signs Vitals: Temp Pulse Resp BP Pulse Ox 99.0 F 76 20 171/96 H 100 06/09/19 19:13 06/09/19 19:13 06/09/19 19:13 06/09/19 19:13 06/09/19 19:13 - General General appearance: Appears well, Alert - HEENT Head: Normocephalic, Atraumatic - Extremities General upper extremity: Other - Covan in place with no active bleeding of proximal left upper extremity warm distal left upper extremity 2+ pulse no sensory or motor deficits Course - Re-evaluation Re-evalutation: 06/09/19 20:58 Patient has graft did not want to place any sutures discussed keeping Coban and gauze on bleeding site and not to be removed until she has dialysis on Friday. Return precautions provided. - Vital Signs Vital signs: Temp Pulse Resp BP Pulse Ox 98.3 F 80 20 174/81 H 95 06/09/19 21:12 06/09/19 21:12 06/09/19 19:13 06/09/19 21:12 06/09/19 21:12 Discharge - Discharge Clinical Impression: Bleeding dialysis graft Condition: Good Disposition: HOME, SELF-CARE Additional Instructions: If you begin to develop any bleeding or any sensory or motor deficits of your left upper extremity please return to emergency department for reevaluation. Referrals: Susie OLIVARES MD [ACTIVE STAFF] - Follow up as needed
[2019-06-09 21:25] VITALS: BP 174/81
== END 2019-06-09 21:20 | disposition home or self-care (01) ==
LOC: ER 18:54
DX: T82.838A Hemorrhage due to vascular prosthetic devices, implants and grafts, initial encounter (principal); J45.909 Unspecified asthma, uncomplicated; I12.0 Hypertensive chronic kidney disease with stage 5 chronic kidney disease or end stage renal disease; N18.6 End stage renal disease; Z99.2 Dependence on renal dialysis
CPT/HCPCS: 99283

== ENCOUNTER 2019-09-08 17:05 | Emergency (ER) | payer MEDICARE, OTHER ==
[2019-09-08 19:25] LABS: ABSOLUTE BASOPHILS # (AUTO) 0.1 10^3/uL (0.0-0.2); ABSOLUTE EOSINOPHILS # (AUTO) 0.1 10^3/uL (0.0-0.6); ABSOLUTE LYMPHOCYTES (AUTO) 1.6 10^3/uL (0.5-4.7); ABSOLUTE NEUT (AUTO) 6.7 10^3/uL (1.7-8.2); BASOPHILS % (AUTO) 0.6 % (0-2); EOSINOPHILS % (AUTO) 1.5 % (0-6); HEMATOCRIT 36.1 % (36.0-47.0); HEMOGLOBIN 11.9 g/dL (12.0-15.5); LYMPHOCYTES % (AUTO) 16.8 % (13-45); MEAN CORPUSCULAR HEMOGLOBIN 31.3 pg (27.0-33.4); MEAN CORPUSCULAR VOLUME 95 fl (80-97); MONOCYTES % (AUTO) 10.1 % (3-13); PLATELET COUNT 233 10^3/uL (150-450); RED BLOOD COUNT 3.79 10^6/uL (3.72-5.28); TOTAL CELLS COUNTED % (AUTO) 100 %; WHITE BLOOD COUNT 9.4 10^3/uL (4.0-10.5)
--- NOTE | 2019-09-08 19:26 | RADIOLOGY REPORT (SQ) ---
EXAM DESCRIPTION: CHEST SINGLE VIEW COMPLETED DATE/TIME: 09/08/2019 7:03 pm REASON FOR STUDY: bed 12 COMPARISON: Chest radiographs 02/23/2017 EXAM PARAMETERS: NUMBER OF VIEWS: One view. TECHNIQUE: Single frontal radiographic view of the chest acquired. RADIATION DOSE: NA LIMITATIONS: None. FINDINGS: LUNGS AND PLEURA: No opacities, masses or pneumothorax. No pleural effusion. MEDIASTINUM AND HILAR STRUCTURES: Unchanged cardiomediastinal contours. HEART AND VASCULAR STRUCTURES: Cardiomegaly. BONES: No acute findings. HARDWARE: Left axillary vascular stent. OTHER: No other significant finding. IMPRESSION: Cardiomegaly. No acute pulmonary findings. TECHNICAL DOCUMENTATION: JOB ID: [id number] [employer]- All Rights Reserved Reading location - IP/workstation name: [email or web address]
[2019-09-08 20:22] LABS: ALBUMIN 3.7 g/dL (3.5-5.0); ALKALINE PHOSPHATASE 68 U/L (38-126); ANION GAP 11 (5-19); ASPARTATE AMINO TRANSFERASE 21 U/L (14-36); BILIRUBIN,DIRECT 0.2 mg/dL (0.0-0.4); BILIRUBIN,TOTAL 0.6 mg/dL (0.2-1.3); BLOOD UREA NITROGEN 16 mg/dL (7-20); CALCIUM 8.7 mg/dL (8.4-10.2); CARBON DIOXIDE 33 mmol/L (22-30); CHLORIDE 95 mmol/L (98-107); CREATINE KINASE 39 U/L (30-135); GLUCOSE 102 mg/dL (75-110); POTASSIUM 3.6 mmol/L (3.6-5.0); TOTAL PROTEIN 6.9 g/dL (6.3-8.2)
[2019-09-08 20:33] LABS: CREATINE KINASE MB 0.63 ng/mL (<4.55)
[2019-09-08 20:39] LABS: TROPONIN I 0.035 ng/mL
--- NOTE | 2019-09-08 21:40 | EKG REPORT ---
SEVERITY:- ABNORMAL ECG - SINUS RHYTHM PROBABLE LEFT ATRIAL ABNORMALITY INCOMPLETE RIGHT BUNDLE BRANCH BLOCK LVH WITH IVCD, LAD AND SECONDARY REPOL ABNRM : Confirmed by: Eli Abdi 08-Sep-2019 21:39:49
--- NOTE | 2019-09-08 21:40 | ER Document Report ---
ED Cardiac - General Chief Complaint: Chest Pain Stated Complaint: CHEST PAIN,SHORTNESS OF BREATH Time Seen by Provider: 09/08/19 18:58 Primary Care Provider: PRITI KIM MD [Primary Care Provider] - Follow up as needed Notes: 49-year-old end-stage renal disease patient on dialysis presents with left-sided chest pain with shortness of breath that started while she was at dialysis today. Patient completed full treatment of dialysis. Patient states it radiated to the right side of her chest. Patient states she was given aspirin 324 mg and this relieved her pain. Patient has a history of PA but states this feels completely different. Patient currently denies any chest pain, shortness of breath, dizziness, nausea/vomiting. TRAVEL OUTSIDE OF THE [place] IN LAST 30 DAYS: No - Related Data Allergies/Adverse Reactions: latex Allergy (Verified 06/09/19 18:59) Generalized rash Home Medications: Amlodipin. Fluticasone. Aspirin. hydralazine. Atorvastatin. Lasix. Carvedilol. Lisinopril. Cetirizine. Megace. Clonidine. Nitroglycerin. Colace. PhosLo. Combivent. Prazosin. Doxazosin. Sensipar Past Medical History - Social History Smoking Status: Current Some Day Smoker Frequency of alcohol use: None Drug Abuse: None Family History: CAD, DM, Hypertension Patient has suicidal ideation: No Patient has homicidal ideation: No - Past Medical History Cardiac Medical History: Reports: Hx Heart Attack, Hx Hypercholesterolemia, Hx Hypertension - ON MEDS Denies: Hx Coronary Artery Disease Pulmonary Medical History: Reports: Hx Asthma, Hx Bronchitis - HX OF IN 2013, Hx Tuberculosis Denies: Hx COPD, Hx Pneumonia Neurological Medical History: Reports: 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 Denies: Hx Seizures Endocrine Medical History: Reports: Hx Diabetes Mellitus Type 2 Renal/ Medical History: Reports: Hx End Stage Renal Disease, Hx Renal Insufficiency. Denies: Hx Peritoneal Dialysis Musculoskeletal Medical History: Denies Hx Arthritis Psychiatric Medical History: Reports: Hx Depression Past Surgical History: Reports: Hx Breast Surgery - Breast cyst removal, Hx Vascular Surgery - Left upper arm AV fistula, Other - Pilonidal cyst excision as a teenager - Immunizations Immunizations up to date: Yes Hx Diphtheria, Pertussis, Tetanus Vaccination: Yes Hx Pneumococcal Vaccination: 11/26/13 Review of Systems - Review of Systems Notes: Constitutional: Negative for fever. HENT: Negative for sore throat. Eyes: Negative for visual changes. Cardiovascular: Positive for chest pain. Respiratory: Positive for shortness of breath. Gastrointestinal: Negative for abdominal pain, vomiting or diarrhea. Genitourinary: Negative for dysuria. Musculoskeletal: Negative for back pain. Skin: Negative for rash. Neurological: Negative for headaches, weakness or numbness. 10 point ROS negative except as marked above and in HPI. Physical Exam - Vital signs Vitals: Temp Pulse Resp BP Pulse Ox 98.4 F 73 16 162/100 H 100 09/08/19 17:17 09/08/19 17:17 09/08/19 17:17 09/08/19 17:17 09/08/19 17:17 - Notes Notes: GENERAL: Well-appearing, well-nourished and in no acute distress. HEAD: Atraumatic, normocephalic. EYES: Extraocular movements intact, sclera anicteric, conjunctiva are normal. NECK: Normal range of motion, supple without lymphadenopathy or JVD. LUNGS: Breath sounds clear to auscultation bilaterally and equal. No wheezes rales or rhonchi. HEART: Regular rate and rhythm without murmurs, rubs or gallops. ABDOMEN: Soft, nontender. No guarding, no rebound. No masses appreciated. EXTREMITIES: Normal range of motion, no pitting or edema. No clubbing or cyanosis. NEUROLOGICAL: Cranial nerves II through XII grossly intact. Normal speech, normal gait. PSYCH: Normal mood, normal affect. SKIN: Warm, Dry, normal turgor, no rashes or lesions noted. Course - Re-evaluation Re-evalutation: 09/08/19 49-year-old female presents with chest pain and shortness of breath which has since resolved. EKG shows no changes from previous with no ST elevation. Patient's initial troponin is 0.035. Chest x-ray shows cardiomegaly without any acute findings. Patient states previous PA without any stent placement. 09/08/19 21:41 HEART score is 3. Repeat troponin improved - 0.029. Presentation of chest pain in an otherwise well appearing patient. Low clinical suspicion for ACS given clinical history, exam, EKG without ST elevations or depressions, and negative initial troponin. HEART score less than or equal to 3. PE also seems unlikely given clinical history, absence of tachycardia or dyspnea. Patient is PERC criteria negative. CXR without evidence of pneumothorax or pneumonia. No widened mediastinum. Aortic dissection also seems unlikely given history, symmetric pulses, CXR, and vitals. Discussed staying for observation versus being discharged home. Pt has elected to be discharged home with follow up with dedicated local truck driver. Strict return precautions given. Pt voices understanding and agrees with plan of care. - Vital Signs Vital signs: Temp Pulse Resp BP Pulse Ox 98.4 F 73 22 H 148/79 H 98 09/08/19 17:17 09/08/19 17:17 09/08/19 23:11 09/08/19 23:11 09/08/19 23:00 - Laboratory Result Diagrams: 09/08/19 17:27 09/08/19 19:54 Laboratory results interpreted by me: 09/08/19 09/08/19 17:27 19:54 Hgb 11.9 L RDW 17.0 H Chloride 95 L Carbon Dioxide 33 H Creatinine 3.45 H Est GFR ( Amer) 17 L Est GFR (MDRD) Non-Af 14 L Discharge - Discharge Clinical Impression: Chest pain Qualifiers: Chest pain type: unspecified Qualified Code(s): R07.9 - Chest pain, unspecified Condition: Stable Disposition: HOME, SELF-CARE Instructions: Chest Pain of Unclear Cause ([facility]) Additional Instructions: You were seen today for chest pain. The exact cause of your pain is unclear. However, based on your cardiac enzyme testing, chest x-ray, and EKG it does not appear that it is from an immediately life-threatening cause at this time. Although your testing here is normal is critical that you follow-up with your primary care physician for continued evaluation of this chest pain and possible stress testing. I recommended you see your physician within the next 24-48 hours to be evaluated for consideration of a stress test. Please return to emergency department immediately if you have worsening of your chest pain, shortness of breath, vomiting, become unable to exert yourself due to pain or difficulty breathing, you pass out, or have any pain that radiates into your arms, jaw, or back. Please also return if you have any additional symptoms that are concerning to you. Referrals: PRITI KIM MD [Primary Care Provider] - Follow up in 3-5 days VIJAY LESTER MD [ACTIVE STAFF] - Follow up in 3-5 days
[2019-09-09 00:12] VITALS: BP 156/94
== END 2019-09-09 00:31 | disposition home or self-care (01) ==
LOC: ER 17:05
DX: R07.9 Chest pain, unspecified (principal); I13.11 Hypertensive heart and chronic kidney disease without heart failure, with stage 5 chronic kidney disease, or end stage renal disease; E11.22 Type 2 diabetes mellitus with diabetic chronic kidney disease; N18.6 End stage renal disease; Z99.2 Dependence on renal dialysis; J45.909 Unspecified asthma, uncomplicated; R06.02 Shortness of breath; I25.2 Old myocardial infarction; F17.200 Nicotine dependence, unspecified, uncomplicated; E78.00 Pure hypercholesterolemia, unspecified; Z79.82 Long term (current) use of aspirin; Z79.899 Other long term (current) drug therapy
CPT/HCPCS: 36415; 71045; 80053; 82550; 82553; 84484; 85025; 93005; 93010; 99285